=== PATIENT | female | born 1970 | race Caucasian/White ===

== ENCOUNTER → 2018-01-08 07:20 | Outpatient (CLI) | payer MEDICAID, SELFPAY ==
--- NOTE | 2018-01-08 07:23 | CA_ITS ---
PROCEDURE: 2-D M-mode and color Doppler study INDICATIONS FOR THE TEST: Chest painX COPD Heart Murmur Tobacco Smoking Palpitations Fatigue Syncope EdemaX HypertensionXDiabetes Mellitus Rheumatic Fever SOBXXDOE ObesityXHyperlipidemia Family History HD Additional History FACTOR 5 DISORDER,TIA,CVA,ABN EKG PATIENT INFORMATION HEIGHT: 64 WEIGHT:184 GENDER: Female B/P:153/82 2-D/M-MODE INTERPRETATION: 2-D MEASUREMENTS OBSERVED VALUES IN CMS Right Ventricular Dimension (RVDd) 2.6 Interventricular Septum (Thickness)(IVsd) .7 Left Ventricular Internal Dimensions(LVIDd) 5.4 Left Ventricular Posterior Wall (Thickness)(LVPWd) .7 Aortic Root 3.0 Aortic Cusp Separation 1.9 Left Atrial Dimensions (LAD) 2.3 2D 1. Left atrium is normal size, left ventricle is normal size, preserved left ventricular systolic function, visually estimated ejection fraction 55% with no regional wall motion abnormality. 2. The right atrium and the ventricular normal size and contractility. 3. The aortic, mitral and tricuspid valves are grossly normal. 4. The pulmonic valve is poorly visualized. 5. No significant pericardial effusion noted. DOPPLER INTERROGATION: Doppler interrogation of the aortic, mitral and tricuspid valvular presence of mild mitral and tricuspid regurgitation, tricuspid regurgitation jet velocity is inadequate for calculation of the right ventricular systolic pressure, diastolic parameters are within normal range. CONCLUSION: 1. Normal left ventricular size, preserved left ventricular systolic function, visually estimated ejection fraction 55% with no regional wall motion abnormality, diastolic parameters are within normal range. 2. Mild mitral and tricuspid regurgitation 3. No significant pericardial effusion noted.
--- NOTE | 2018-01-08 07:23 | XR_ITS ---
XR chest 2V HISTORY: ITS.REASON: z ORDERING PHYSICIAN: Emeka Murphy MD PATIENT AGE: 47 years COMPARISON: None FINDINGS: The cardiomediastinal silhouette and pulmonary vascularity are within normal limits. The lungs are clear without infiltrates, suspicious nodules, or pleural effusions. No acute bony abnormalities. IMPRESSION: Negative chest, no acute finding
--- NOTE | 2018-01-08 07:23 | NM_ITS ---
CARDIOLITE SPECT MYOCARDIAL PERFUSION SCAN, REST AND STRESS: EXERCISE STRESS [facility] REVIEW QGS EF AND WALL MOTION EVALUATION: QPS - PERFUSION EVALUATION HISTORY: Chest pain, SOB, Fatigue, HTN, DM, Tobacco use DOSE: 9.91 mCi technetium 99m mibi intravenously at rest followed by 31.0 mCi technetium 99m mibi following the intravenous ministration of 0.4 mg of Lexiscan. Resting blood pressure is 146/87. Stress blood pressure 134/86. FINDINGS: Ejection fraction is calculated to be 60%. Stress images reveal decreased activity throughout the anterior wall while rest images reveal improved activity. Gated images calculated ejection fraction of 60% with anterior apical hypokinesis IMPRESSION: High risk abnormal stress test with anterior wall ischemia accompanied by regional wall motion abnormality
--- NOTE | 2018-01-08 07:23 | CI_ITS ---
Cerebrovascular Exam Indications: TIA 434.91. CVA 436. 785.9 Bruit. IMPRESSIONS 1. The bilateral vertebral arteries are patent with normal antegrade flow. 2. Study suggests 20-49% stenosis involving the right internal carotid artery. 3. Study suggests 20-49% stenosis involving the left internal carotid artery. Carotid duplex study. Complete study and Doppler flow study including spectral analysis, color and alvarez scale imaging. Height: Height: 162.6cm. Height: 64in. Weight: Weight: 83.5kg. Weight: 183.6lb. Body mass index: BMI: 31.6kg/m^2. Body surface area: BSA: 1.97m^2. Location: Vascular laboratory. Patient status: Outpatient. Incidental findings: A thyroid cyst in the left lobe is noted incidentally. Tables: Arterial flow: + +--------+--------+ Location V sys V ed + +--------+--------+ Right CCA - proximal 81.7cm/s 5.7cm/s + +--------+--------+ Right CCA - distal 69.9cm/s 20.4cm/s + +--------+--------+ Right ECA 76.2cm/s 14.9cm/s + +--------+--------+ Right ICA - proximal 83.3cm/s 23.6cm/s + +--------+--------+ Right ICA - mid 98.2cm/s 30.6cm/s + +--------+--------+ Right ICA - distal 98.2cm/s 32.2cm/s + +--------+--------+ Right vertebral 36.1cm/s 11.8cm/s + +--------+--------+ Left CCA - proximal 85.6cm/s 18.1cm/s + +--------+--------+ Left CCA - distal 83.3cm/s 22cm/s + +--------+--------+ Left ECA 96.6cm/s 14.9cm/s + +--------+--------+ Left ICA - proximal 66cm/s 17.3cm/s + +--------+--------+ Left ICA - mid 79.4cm/s 24.4cm/s + +--------+--------+ Left ICA - distal 97.4cm/s 32.2cm/s + +--------+--------+ Left vertebral 25.1cm/s 9.4cm/s + +--------+--------+ Velocity ratios: + + + + + + Right, V sys Right, V ed Left, V sys Left, V ed + + + + + + Max ICA/dist CCA 1.4 1.58 1.17 1.46 + + + + + + (Report amended ) Electronically signed by: Anoop Sahu [id number]
--- NOTE | 2018-01-08 07:47 | HMH.ITSHM ---
Current Home Medications as stated by this patient Hillary Velez or public health representative. []WARFARIN TRIAMTERENE PIOZLITAZONE PANTOPRAZOLE METOPROLOL HYOSCYAMINE GABAPENTIN DILTIAZEM ASA
== END ==
PROVIDERS: PCP Nurse Practitioner Family; Visit Provider Internal Medicine
DX: R06.02 Shortness of breath (principal); I10 Essential (primary) hypertension; Z86.73 Personal history of transient ischemic attack (TIA), and cerebral infarction without residual deficits; R07.9 Chest pain, unspecified; R94.31 Abnormal electrocardiogram [ECG] [EKG]; F17.200 Nicotine dependence, unspecified, uncomplicated
CPT/HCPCS: 71046; 78452; 93017; 93306; 93880; A9502; J2785

== ENCOUNTER → 2019-12-20 07:05 | Outpatient (CLI) | payer MEDICAID, SELFPAY ==
[2019-12-20 09:47] LABS: Coronavirus 19 IgG Antibody Negative (Negative); Coronavirus 19 IgM Antibody Negative (Negative)
== END ==
PROVIDERS: Visit Provider Internal Medicine Gastroenterology
DX: Z01.818 Encounter for other preprocedural examination (principal); Z12.11 Encounter for screening for malignant neoplasm of colon
CPT/HCPCS: 36415; 86328

== ENCOUNTER 2019-12-22 12:01 | Day surgery (SDC) | payer MEDICAID, SELFPAY ==
[2019-12-22 12:27] VITALS: BP 127/81; PULSE 70; RESP 18; TEMP 36.2; O2SAT 97; BMI 35.2
[2019-12-22 12:52] LABS: POC Glucose,Bedside 111 (70-110)
--- NOTE | 2019-12-22 13:30 | HMH.ANESCL ---
[facility] Anesthesia Checklist - Patient Identification Patient Identification: Arm Band - Structural Data Admitted From: Home Planned Operative Procedure/s: colonoscopy Consent for Planned Operative Procedure(s) Verified: Yes Verified Documents: Surgical Consent, History and Physical - NPO Status Verified Time NPO: 00:00 - Additional verifications Anesthesia Reactions: No - Airway Assessment C-Spine Mobility Assessed: Yes (mp2) TMJ Mobility Assessed: Yes Dentition: Good Dentition - Neurological Assessment Level of Consciousness: Awake, Alert - Anesthesia Plan Anesthesia Risk discussed: Yes Anesthesia Plan: Verified ASA Class: III Anesthesia Type: MAC [facility] History I have reviewed the patient's past medical history: Yes Medical History: Reports:: Cerebrovascular Accident, Diabetes Mellitus Type 2, Gastroesophageal Reflux Disease(GERD), Hyperlipidemia, Hypertension, Kidney Stones, Transient Ischemic Attacks (TIA) Denies:: Cancer, Diabetes Mellitus Type 1, Internal Pacemaker, MRSA, Seizures *Have you ever received a pneumonia vaccine?: No *Have you received a flu vaccine this season?: No Anesthesia experience/problems:: nac Laterality Cases: Bilateral: Tonsillectomy Other Surgeries: Yes: Cardiac Catheterization, , Tubal Ligation, Other (polyp removal). No: Pacemaker Amputation: No Fractures: No - *Social History Smoking Status: Current every day smoker Tobacco Type: cigarettes # Packs/Day (cigarettes): 1 #Yrs smoked (if former smoker): 35 Alcohol Intake: never Alcohol Intake Frequency:: holidays/special occasions only Substance Use Type: denies use *Occupational Status:: unemployed Housing: house Household Members: spouse *Travel in the last 8 weeks: None Family Hx:: Hypertension, Hyperlipidemia
--- NOTE | 2019-12-22 13:48 | P.PCN_ITS ---
[facility] Procedure Note Procedure Note:: Colonoscopy Procedure Report: Colonoscopy with cold snare polypectomy Endoscopist: Preston Howard II, MD Referring physician: LISSETTE Barba Date of Procedure: December 22, 2019 Equipment: Olympus 180 variable stiffness pediatric colonoscope Sedation: MAC sedation Indication: Mrs. Velez is a 49-year-old female who is here for diagnostic colonoscopy secondary to a positive Cologuard test. She does state that she had a colonoscopy at age 5 and polyps were removed. She reports no abdominal pain, weight loss, change in her bowel habits or rectal bleeding. She reports no family history of colon cancer. Procedure: Prior to the procedure, a history and physical exam was performed, and patient's medications and allergies were reviewed. The risks, benefits and alternatives of the sedation and procedure were discussed with the patient. All questions were answered and informed consent was obtained. The patient was brought to the procedure room. Patient identification and proposed procedure were verified by the physician and the nurse. The patient was placed in a left lateral decubitus position and the scope was passed under direct vision. Throughout the procedure, the patient's blood pressure, pulse, and oxygen saturations were monitored continuously. The colonoscopy was accomplished without difficulty. The patient tolerated the procedure well. Findings: On digital rectal examination there was normal rectal tone. There were no external hemorrhoids. The colonoscope was introduced through the anal canal to the rectum and advanced to the cecum. The ileocecal valve and appendiceal orifice were identified. The scope was advanced a short distance into the ileum which appeared grossly normal. The scope was then withdrawn into the colon. There were 2 diminutive polyps (ascending x1 (4 mm) and sigmoid x1 (4 mm)) which were removed via cold snare polypectomy. The remaining cecum, ascending and transverse colon and mucosa were grossly normal. There were scattered diverticuli throughout the descending and sigmoid colon (LEFT colon). The rectum itself was normal. Upon retroflexion within the rectum there were grade 1 internal hemorrhoids. The preparation was excellent throughout with [place] Preparation Score of 9. The cecal time was 12 minutes. Impression: 1. Diminutive colonic polyps x2 2. Left-sided diverticulosis 3. Grade 1 internal hemorrhoids Plan: I will follow up the polyp pathology and recommend repeat colonoscopy again in 7-10 years based upon the polyp histology. I would encourage fiber supplementation on a long-term daily maintenance basis.
[2019-12-22 13:55] VITALS: BP 87/52; PULSE 67; RESP 16; TEMP 36.2; O2SAT 96
[2019-12-22 14:05] VITALS: BP 98/57; PULSE 62; RESP 18; TEMP 36.2; O2SAT 96
[2019-12-22 14:15] VITALS: BP 105/61; PULSE 66; RESP 18; TEMP 36.2; O2SAT 95
[2019-12-22 14:25] VITALS: BP 119/64; PULSE 68; RESP 18; TEMP 36.2; O2SAT 95
[2019-12-22 14:45] VITALS: BP 127/70; PULSE 67; RESP 18; TEMP 36.2; O2SAT 97
== END 2019-12-22 14:45 | disposition home or self-care (01) ==
LOC: OUTP 12:04
PROVIDERS: PCP Nurse Practitioner; Visit Provider Internal Medicine Gastroenterology
PROC: 0DJD8ZZ Inspection of Lower Intestinal Tract, Via Natural or Artificial Opening Endoscopic (ICD-10-PCS; CPT 45378; principal; 2019-12-22 13:00)
DX: Z86.010 Personal history of colon polyps (principal); K63.5 Polyp of colon; K57.30 Diverticulosis of large intestine without perforation or abscess without bleeding; K64.0 First degree hemorrhoids; E11.9 Type 2 diabetes mellitus without complications; K21.9 Gastro-esophageal reflux disease without esophagitis; E78.5 Hyperlipidemia, unspecified; I10 Essential (primary) hypertension; Z86.73 Personal history of transient ischemic attack (TIA), and cerebral infarction without residual deficits; Z72.0 Tobacco use
CPT/HCPCS: 45385; 82962

== ENCOUNTER → 2022-12-29 10:59 | Outpatient (CLI) | payer MEDICAID, SELFPAY ==
--- NOTE | 2022-12-29 11:03 | CA_ITS ---
APPROVED REPORT EXAM: Comprehensive 2D, Doppler, and color-flow Echocardiogram Piece Cutter: Tejal Doherty RVT Ht: 5 ft 4 in Wt: 190lbs BSA: 1.91 BP: 130/68 mmHg Indications: PRE-OP,DM,SMOKER,HTN,HX TIA,ABN EKG 2D Dimensions LVOT 2.00 cm (M/F) 1.5-2.5 LA Volume 33.30 mL LA Volume Index 17.34 mL/m2 (M/F) 16-34 M-Mode Dimensions RVDd 3.30 cm (0.9-2.6) LA Diam 3.18 cm (1.9-4.0) LVDd 5.16 cm (3.5-5.7) Ao Diam 2.52 cm (2.0-3.7) LVDs 3.47 cm (3.5-5.7) IVSd 0.68 cm (0.6-1.1) PWd 0.38 cm (0.6-1.1) EF (Teich) 60.80% FS 32.80% EDV (Teich) 127.20 mL TAPSE 2.21 (<1.7) ESV (Teich) 49.80 mL LV Diastology E Decel Time 237.00 (160-240 msec) E/A Ratio 1.1 MED E' 7.60 (< 7 cm/sec) E'/MED E' Ratio 12.21 (>14) LAT E' 9.00 (<10 cm/sec) E/LAT E' Ratio 10.31 (>14) Aortic Valve LVOT Max 143.00 (70-110 cm/s) LVOT VTI 29.52 cm AoV Peak Alex. 174.00 (50-130 cm/s) AO Peak GR. 12.00 mmHg AO Mean GR. 4.80 (<5 mmHg) AO VTI 32.57 (18-25 cm) LYRIC (VTI) 2.85 (2.5-4.5 cm2) Mitral Valve MV E Max Alex. 93.00 (40-130 cm/s) MV A Velocity 88.00 (40-130 cm/s) E/A Ratio 1.05 MV Decel. Time 237.00 (160-240 ms) MV PHT 69.00 ms Pulmonary Valve PV Peak Velocity 76.00 (50-150 cm/s) Tricuspid Valve TR P. Velocity 136.00 cm/s RAP Estimate 10.00 mmHg RVSP 17.40 mmHg Left Ventricle The left ventricle is normal size. Left ventricular systolic function is low???normal. There is normal left ventricular wall thickness. There is borderline global hypokinesis present. The left ventricular diastolic function is normal. LVEF is 50%. Right Ventricle The right ventricle is mildly dilated. The right ventricular systolic function is normal. There is increased RV wall thickness. Atria The left atrium size is normal. The right atrium size is normal. There is no Doppler evidence of interatrial shunt. Aortic Valve Aortic valve opens well. There is no aortic valvular stenosis. No aortic regurgitation is present. Mitral Valve The mitral valve is normal in structure. No evidence of mitral valve stenosis. Trace mitral regurgitation. Tricuspid Valve The tricuspid valve leaflets are thin and pliable. Mild tricuspid regurgitation. RVSP is normal. Pulmonic Valve The pulmonary valve is normal in structure. Trace pulmonic regurgitation. Great Vessels The aortic root is normal in size. The ascending aorta is normal in size. IVC is normal in size and collapses >50% with inspiration. Pericardium There is no pericardial effusion. Other Information Study Quality: Fair Conclusion Low normal LV systolic function (LVEF 50%). Mildly dilated RV. Mild TR. Electronically signed by : Roz Rahman MD 01/01/2023 16:57:38
== END ==
PROVIDERS: PCP Nurse Practitioner; Visit Provider Nurse Practitioner Family
DX: I10 Essential (primary) hypertension (principal); I65.29 Occlusion and stenosis of unspecified carotid artery; R94.31 Abnormal electrocardiogram [ECG] [EKG]; Z86.73 Personal history of transient ischemic attack (TIA), and cerebral infarction without residual deficits; Z01.818 Encounter for other preprocedural examination; E11.9 Type 2 diabetes mellitus without complications; Z79.84 Long term (current) use of oral hypoglycemic drugs; Z72.0 Tobacco use
CPT/HCPCS: 93306